=== PATIENT | male | born 1960 | race Caucasian/White ===

== ENCOUNTER 2019-09-05 11:28 | Emergency (ER) | payer MEDICARE, SELFPAY ==
[2019-09-05 11:35] VITALS: BP 143/81; PULSE 86; RESP 16; TEMP 36.6; O2SAT 94; BMI 27.5
--- NOTE | 2019-09-05 12:58 | ED_ITS ---
Entered by Rosa Da Silva, acting as scribe for Isai Drew MD Sep 05, 2019 11:28 HPI - General Adult General: Chief complaint: General Medical Stated complaint: CHEST PAIN X 7DAYS Time Seen by Provider: 09/05/19 12:55 Source: patient Mode of arrival: ambulatory Limitations: no limitations History of Present Illness: HPI narrative: 58-year-old male presents with his from a clinic. He was told he could be having heart attacks so he was referred to the emergency department. When I take a history from the patient, he states that for the last 7 days he has had shortness of breath, wheezing, and creamy green mucus production, dyspnea on exertion and intermittent left-sided chest pain which is nonexertional, nonradiating and without diaphoresis, nausea, jaw pain, arm pain or back pain. He does have a history of smoking and COPD. He uses albuterol nebulizer at home with mild relief. He originally presented to his clinic for the shortness of breath but when he mentioned he had chest pain he was sent to the emergency department. Currently his chest pain is resolved. He reports that it is reproducible by pressing on the left anterior i nferior chest wall. complaint: chest pain Onset (ago): day(s) (4 days ago) Location: chest (L chest) Severity: mild Pain Consistency: constant Relieving factors: none Exacerbating factors: none Associated symptoms: Reports chest pain, cough, dyspnea, malaise, short of breath and other (congestion); Deny diaphoresis, fevers/chills, headache(s), nausea, syncope, vomiting or weakness Treatments prior to arrival: other (pt was seen at urgent care, sent to ED for a possible heart attack) Review of Systems Const: Reports: fatigue and malaise; Denies: fever(s), chills, body aches, night sweats or diaphoresis Card: Reports: chest pain, dyspnea on exertion and orthopnea; Denies: edema, lightheadedness, syncope or leg pain with exertion Resp: Reports: dyspnea, productive cough, wheezing, change in phlegm color and chest congestion; Denies: pain on inspiration or hemoptysis GI: Denies: abdominal pain, nausea or vomiting : Denies: flank pain Musc: Reports: other (L chest wall); Denies: neck pain or back pain Neuro: Denies: headache(s) or weakness in extremities PFSH ED PFSH: Social History Smoking and tobacco status: current every day smoker Physical Exam Narrative: EXAM NARRATIVE: clubbing of the nails chronic stigmata of tobacco smoking Const: COMMON NORMALS: no limitations, alert and well nourished EXAM LIMITATIONS: no altered mental status GENERAL APPEARANCE: cooperative and well developed ORIENTATION/CONSCIOUSNESS: Yes awake; not confused HENMT: COMMON NORMALS: normocephalic, atraumatic, external ears normal and Normal external nose present HEAD & SCALP: normal to inspection, normocephalic and atraumatic FACE & SINUS: face symmetric NOSE: Normal external nose present EXTERNAL EAR: Yes external ears normal MOUTH: lip normal; no muffled voice Eye: COMMON NORMALS: EOMs intact bilaterally and conjunctivae normal GENERAL EYE: appearance normal, both eyes and all related structures CONJUNCTIVA: Yes conjunctivae normal Neck/C-Spine: COMMON NORMALS: no JVD GENERAL: Yes normal visual inspection and Yes trachea midline Chest: COMMONS NORMALS: negative for normal palpation of entire chest wall (ttp left anterior inferior chest wall) CHEST: Yes Symmetrical chest wall rise and No crepitus Resp: EFFORT & INSPECTION: Yes able to speak in complete sentences, Yes symmetric chest movement, Yes Actively coughing, Yes uses accessory muscles, No tracheal deviation and No tripod positioning AUSCULTATION: abnormal I/E ratio, rhonchi, wheezes and diminished lung sounds Cardio: COMMON NORMALS: no JVD, regular rate and regular rhythm RATE: regular rate RHYTHM: regular rhythm PERIPHERAL PULSES: radial pulses present GI: COMMON NORMALS: Soft to palpation INSPECTION: Yes normal to inspection PALPATION: Yes Soft to palpation, No Tenderness to palpation present (GI) and No Guarding due to palpation present (GI) Back/Pelvis: COMMON NORMALS: thoraco-lumbar ROM normal Extremity: COMMON NORMALS: normal to inspection GENERAL: Yes normal exam except as noted Neuro: COMMON NORMALS: moves all extremities, no focal motor deficits and no sensory deficits noted SENSORIUM/ORIENTATION: Yes alert Psych: COMMON NORMALS: mental status grossly normal, Normal thought process present, cooperative, normal affect and speech normal SPEECH: Yes normal speech THOUGHT PROCESS: Normal thought process present Skin: COMMON NORMALS: no rashes or lesions noted, turgor normal and no jaundice GENERAL SKIN EXAM: no rashes or lesions noted and turgor normal Course Vital Signs: Vital signs: Vital Signs Temperature 98 F 09/05/19 11:35 Pulse Rate 80 09/05/19 15:04 Respiratory Rate 14 09/05/19 15:04 Blood Pressure 150/86 09/05/19 15:04 Pulse Oximetry 95 09/05/19 15:04 MDM - General Adult MDM Narrative: Medical decision making narrative: 58-year-old male who presents with a syndrome most consistent with COPD exacerbation possibly complicated by pneumonia. The patient only has risk factors for acute coronary syndrome however his history seems quite atypical for anginal pain. Will obtain an EKG and troponin however I think most of the focus should be on his respiratory symptoms. Lab Data: Labs: Lab Results 09/05/19 09/05/19 09/05/19 Range/Units 13:22 13:22 13:22 WBC 9.0 (4.0-10.0) 10^3/ uL RBC 4.45 (4.1-5.3) 10^6/u L Hgb 13.3 (11.7-16.6) g/dL Hct 38.6 L (42.0-52.0) % MCV 86.7 (80-94) fL MCH 29.9 (28.0-34.0) pg MCHC 34.5 (30.0-36.0) g/dL RDW 12.1 (12.1-15.1) % Plt Count 144 (130-400) 10^3/c mm MPV 9.5 (7.4-10.4) fL Neut % (Auto) 65.7 % Lymph % (Auto) 20.1 % [place] % (Auto) 12.7 % Eos % (Auto) 0.2 % Baso % (Auto) 0.1 % Neut # (Auto) 5.9 (1.8-7.7) 10^3/u L Lymph # (Auto) 1.8 (0.8-4.8) 10^3/u L [place] # (Auto) 1.1 H (0.2-0.9) 10^3/u L Eos # (Auto) 0.0 (0.0-0.8) 10^3/u L Baso # (Auto) 0.0 (0.0-0.1) 10^3/u L Nucleated RBC % (a uto) 0 % Nucleated RBCs # 0.0 /100WBC Sodium 126 L (136-145) mmol/L Potassium 3.2 L (3.5-5.1) mmol/L Chloride 83 L (98-107) mmol/L Carbon Dioxide 31 H (22-29) mmol/L Anion Gap 15.2 (5-19) BUN 18 (6-20) mg/dL Creatinine 1.1 (0.7-1.2) mg/dL GFR Calculation 68.5 L (90-130) mL/min Glucose 125 H (65-115) mg/dL Calculated Osmolal ity 260 L (285-295) mOsm/k g Calcium 9.1 (8.5-10.5) mg/dL Troponin T Baselin e 10 (0-15) ng/mL NT-Pro-B Natriuret Pep 61 (0-125) pg/mL EKG Data^: Sinus rhythm at a rate of 81 bpm, normal axis, appears to have normal intervals, no concerning ST segment elevations or depressions, no hyperacute T waves, no Q waves.: Computer generated interpretation: Chest X-Ray 09/05/19 13:14 IMPRESSION: Moderately advanced chronic obstructive pulmonary disease. Discharge Plan Discharge Patient Disposition: Home, Self-Care Clinical Impression: Acute exacerbation of chronic obstructive pulmonary disease, Cigarette smoker motivated to quit, Acute hypokalemia Condition: Stable Prescriptions: New prednisone 10 mg tablet 10 mg PO TID Qty: 1,000 RF: 0 No Action ipratropium-albuterol 0.5 mg-3 mg(2.5 mg base)/3 mL Solution For Nebulization See Rx Instructions .ROUTE .COMPLEX RF: 0 atenolol-chlorthalidone 50-25 mg tablet 1 tab PO DAILY RF: 0 simvastatin 40 mg tablet 40 mg PO DAILY RF: 0 metformin 1,000 mg tablet 1,000 mg PO BID RF: 0 gabapentin 300 mg capsule 300 mg PO TID RF: 0 lisinopril 40 mg Tablet 40 mg PO DAILY RF: 0 Januvia 100 mg tablet 100 mg PO DAILY RF: 0 Symbicort 160-4.5 mcg/actuation HFA aerosol inhaler 2 puff INHALATION BID PRN (Reason: Shortness Of Breath) RF: 0 Referrals: Flor Timmons FNP-C [Family Provider] - 4-7 days Discharge Diet: Diabetic Discharge Activity: Increase activity as tolerated Patient Instructions: How to Stop Smoking (ED), Chronic Obstructive Pulmonary Disease (ED) Discharge Date/Time: 09/05/19 15:17 Coding Level of Care Code ED Stick Puller for Chg Fwd Exam Comprehensive The documentation recorded by the Avinash seaman Bridget Annette, accurately reflects the service I personally performed and the decisions made by me, Isai Drew MD Sep 05, 2019 11:28
--- NOTE | 2019-09-05 13:14 | XR_ITS ---
WS: [id number] XR chest 2V* [id number] REASON FOR EXAM: left chest pain, cough, wheezing FINDINGS: Markedly hyper aerated lungs with findings of the hemidiaphragm and decreased radiolucency consistent with moderately advanced chronic obstructive pulmonary disease. No pneumonia, pleural effu marc, pulmonary edema, There was no definite pneumothorax seen. XR/XR chest 2V* [id number] IMPRESSION: Moderately advanced chronic obstructive pulmonary disease.
--- NOTE | 2019-09-05 13:14 | ECG_ITS ---
Measurements Intervals [place] Rate: 81 P: 38 [place]: 128 QRS: 73 QRSD: 82 T: 80 QT: 389 QTc: 452 SINUS RHYTHM No previous ECG available for comparison Electronically Signed On 09-05-2019 20:24:21 [employer] by Geo Maurice M.D. [email or web address]
[2019-09-05] MEDS: aspirin 81 mg Chew Tablet 324 MG PO (13:23)
[2019-09-05 13:25] VITALS: PULSE 86; RESP 14; O2SAT 94
[2019-09-05 13:28] LABS: Basophils % 0.1 %; Nucleated Red Blood Cells % 0 %
[2019-09-05 13:33] LABS: Eosinophils % 0.2 %; Hematocrit 38.6 % (42.0-52.0); Hemoglobin 13.3 g/dL (11.7-16.6); Lymphocytes # 1.8 10^3/uL (0.8-4.8); Lymphocytes % 20.1 %; Mean Corpuscular HGB Conc 34.5 g/dL (30.0-36.0); Mean Corpuscular Hemoglobin 29.9 pg (28.0-34.0); Mean Corpuscular Volume 86.7 fL (80-94); Mean Platelet Volume 9.5 fL (7.4-10.4); Monocytes # 1.1 10^3/uL (0.2-0.9); Monocytes % 12.7 %; Neutrophils # 5.9 10^3/uL (1.8-7.7); Neutrophils % 65.7 %; Platelet Count 144 10^3/cmm (130-400); Red Blood Count 4.45 10^6/uL (4.1-5.3); Red Cell Distribution Width 12.1 % (12.1-15.1)
[2019-09-05 13:47] LABS: Troponin(5th) Baseline 10 ng/mL (0-15)
[2019-09-05 13:52] LABS: Slide Review Slide Review Perform
[2019-09-05 13:54] LABS: Anion Gap 15.2 (5-19); Blood Urea Nitrogen 18 mg/dL (6-20); Calcium 9.1 mg/dL (8.5-10.5); Carbon Dioxide 31 mmol/L (22-29); Chloride 83 mmol/L (98-107); Glomerular Filtration Rate 68.5 mL/min (90-130); Glucose 125 mg/dL (65-115); NT Pro B Type Natriuretic Pept 61 pg/mL (0-125); Osmolality Calculated 260 mOsm/kg (285-295); Potassium 3.2 mmol/L (3.5-5.1); Sodium 126 mmol/L (136-145)
[2019-09-05 15:04] VITALS: BP 150/86; PULSE 80; RESP 14; O2SAT 95
== END 2019-09-05 15:17 | disposition home or self-care (01) ==
PROVIDERS: Emergency Provider Emergency Medicine; Family Provider Nurse Practitioner Family
DX: J44.1 Chronic obstructive pulmonary disease with (acute) exacerbation (principal); F17.210 Nicotine dependence, cigarettes, uncomplicated; E87.6 Hypokalemia
CPT/HCPCS: 36415; 71046; 80048; 83880; 84484; 85025; 93005; 99281; 99284